=== PATIENT | male | born 1965 | race Hispanic/Latino ===

== ENCOUNTER → 2023-02-12 | Outpatient (CLI) | payer SELFPAY ==
[~2023-02-12] VITALS: Ht 170.2 cm; Wt 103.5 kg
[~2023-02-12] MED LIST: APIX2.5T PO; BACITRACIN 28.4 GM OINT TP ONE; BARI2TAB PO; CEFAZOLIN SODIUM 2 GM VIAL ONE; LACTATED RINGERS 1000ML 0 ML IV ONE
[2023-02-12 13:39] LABS: BASOPHILS # (AUTO) 0.06 K/uL (0.00-0.20); EOSINOPHILS # (AUTO) 0.17 K/uL (0.00-0.70); EOSINOPHILS % (AUTO) 2.8 % (0.0-8.0); HEMATOCRIT 42.5 % (42-54); IMMATURE GRANULOCYTE ABSOLUTE 0.02 K/uL (0-1); LYMPHOCYTES # (AUTO) 1.6 K/uL (1.0-4.8); LYMPHOCYTES % (AUTO) 27.4 % (21.0-51.0); MEAN CORPUSCULAR HEMOGLOBIN 29.2 pg (27.0-33.0); MEAN CORPUSCULAR HGB CONC 32.7 g/dL (32.0-36.0); MEAN CORPUSCULAR VOLUME 89.3 fL (79-99); MONOCYTES # (AUTO) 0.5 K/uL (0.1-1.0); MONOCYTES % (AUTO) 8.2 % (3.0-13.0); NEUTROPHILS # (AUTO) 3.6 K/uL (1.8-7.7); NEUTROPHILS % (AUTO) 60.3 % (40.0-77.0); PLATELET COUNT (AUTO) 227 K/uL (130-400); RED BLOOD CELL COUNT(AUTO) 4.76 MIL/uL (4.50-6.20); RED CELL DISTRIBUTION WIDTH 13.6 % (11.0-15.5)
[2023-02-12 13:46] VITALS: BP 127/80; PULSE 62; RESP 18
[2023-02-12 13:48] LABS: CREATININE 0.9 mg/dL (0.5-1.5); POTASSIUM 4.1 mmol/L (3.5-5.1)
[2023-02-12 13:50] LABS: INR < 0.93 (0.85-1.15); PROTHROMBIN TIME 10.7 SEC (9.6-11.6)
[2023-02-12 13:52] LABS: PARTIAL THROMBOPLASTIN TIME 31.6 SEC (26.3-35.5)
== END | disposition home or self-care (01) ==
LOC: DAH 12:00 → EDSTATUS 12:00 → DAH 02-18 08:00
PROVIDERS: ATTEND Urology
DX: N47.1 Phimosis (principal); Z79.01 Long term (current) use of anticoagulants; Z53.8 Procedure and treatment not carried out for other reasons
CPT/HCPCS: 93005; 80048; 85025; 85610; 85730; 36415; A6260